=== PATIENT | male | born 1960 | race Caucasian/White ===

== ENCOUNTER 2018-08-16 14:06 | Emergency (ER) | payer BC, OTHER ==
[2018-08-16 14:18] VITALS: BP 162/104
[2018-08-16] MEDS ORDERED: Sodium Chloride 0.9% 10 ML Syringe FLUSH PRN (14:45)
[2018-08-16] MEDS ORDERED: Ondansetron 4 MG/2 ML SDV IVPUSH ONE (14:45)
[2018-08-16] MEDS ORDERED: Sodium Chloride 0.9% 1,000 ML IV ONE (14:45)
--- NOTE | 2018-08-16 14:48 | EDM.PDOC ---
ED HPI GENERAL MEDICAL PROBLEM - General Chief Complaint: Abdominal Pain Stated Complaint: ABDOMINAL PAIN Time Seen by Provider: 08/16/18 14:41 Source of Information: Reports: Patient History Limitations: Reports: No Limitations - History of Present Illness INITIAL COMMENTS - FREE TEXT/NARRATIVE: 58-year-old male presents for evaluation and treatment of left lower quadrant abdominal pain. Patient reports that the pain has been present off-and-on since beginning of July. States that this occurred about a year ago. He saw his PCP and was diagnosed with diverticulitis. He reports the beginning of this month he contacted his primary care provider was placed on amoxicillin for diverticulitis. Seem to resolve for the most part. reports now since he has had constant cramping pain to the left lower quadrant. Rates the pain as a 3-5 out of 10. States initially started having diarrhea but he is now having more constipation. Last bowel movement was this morning; he reports that it was firm and hard past. He has not had any melena or hematochezia. Reports some nausea but denies any vomiting. He also has had some chills but no fevers. He reports he does have a good appetite but has been having clear liquids today as that he is what he was told to do previously with diverticulitis. Patient's primary care provider is Dr. Joaquin. He did contact him today and he is instructed to come to the ER as he might require CT scan for further evaluation. Patient reports he did have a colonoscopy in the past. Does not recall exactly what was found but states he was told that it was good and he did not have any abnormalities. Reports he's had hernia repairs but no other abdominal surgeries. Left Abdomen Pain Score (Numeric/FACES): 3 - Related Data Allergies Allergy/AdvReac Type Severity Reaction Status Date / Time No Known Allergies Allergy Verified 08/16/18 14:15 Home Meds: Home Meds Levofloxacin [Levaquin] 750 mg PO DAILY #10 tablet 08/16/18 [Rx] metroNIDAZOLE [Flagyl] 500 mg PO Q8H #30 tab 08/16/18 [Rx] Past Medical History HEENT History: Reports: None Cardiovascular History: Reports: None Respiratory History: Reports: Sleep Apnea, Other (See Below) Other Respiratory History: utilizes cpap Gastrointestinal History: Reports: Other (See Below) Other Gastrointestinal History: lactose intolerant, L inguinal hernia Genitourinary History: Reports: None ART SUPERVISOR History: Reports: None Musculoskeletal History: Reports: Other (See Below) Other Musculoskeletal History: chronic low back pain Neurological History: Reports: None Psychiatric History: Reports: None Endocrine/Metabolic History: Reports: None Hematologic History: Reports: None Immunologic History: Reports: None Oncologic (Cancer) History: Reports: None Dermatologic History: Reports: None - Past Surgical History Head Surgeries/Procedures: Reports: None Social & Family History - Tobacco Use Smoking Status *Q: Never Smoker - Caffeine Use Caffeine Use: Reports: Soda - Recreational Drug Use Recreational Drug Use: No ED ROS GENERAL - Review of Systems Review Of Systems: See Below Constitutional: Reports: Chills. Denies: Fever, Decreased Appetite GI/Abdominal: Reports: Abdominal Pain (Left lower quadrant), Constipation, Diarrhea, Nausea. Denies: Decreased Appetite, Hematochezia, Melena, Vomiting : Reports: No Symptoms. Denies: Dysuria, Hematuria ED EXAM, GI/ABD - Physical Exam Exam: See Below Exam Limited By: No Limitations General Appearance: Alert, WD/WN, No Apparent Distress Ears: Normal External Exam Nose: Normal Inspection Throat/Mouth: Normal Inspection, Normal Lips, Normal Voice, No Airway Compromise Neck: Normal Inspection Respiratory/Chest: No Respiratory Distress, Lungs Clear, Normal Breath Sounds Cardiovascular: Normal Peripheral Pulses, Regular Rate, Rhythm, No Murmur GI/Abdominal Exam: Normal Bowel Sounds, Soft, Guarding, Tender (Left lower quadrant). No: Rigid, Rebound Neurological: Alert, Oriented, Normal Cognition Psychiatric: Normal Affect, Normal Mood Skin Exam: Warm, Dry, Normal Color Course - Vital Signs Last Recorded V/S: Last Vital Signs Temp 98.1 F 08/16/18 14:15 Pulse 85 08/16/18 14:15 Resp 18 08/16/18 14:15 BP 162/104 H 08/16/18 14:15 Pulse Ox 99 08/16/18 14:15 - Orders/Labs/Meds Orders: Active Orders 24 hr Category Date Time Status Peripheral IV Care [RC] . DIRECTED Care 08/16/18 14:45 Active Abdomen Pelvis w Cont [CT] Stat Exams 08/16/18 14:45 Taken Peripheral IV Insertion Adult [OM.PC] Routine Oth 08/16/18 14:45 Ordered Labs: Laboratory Tests 08/16/18 08/16/18 08/16/18 Range/Units 14:18 14:18 16:15 WBC 12.28 H (4.23-9.07) K/mm3 RBC 5.13 (4.63-6.08) M/mm3 Hgb 15.5 (13.7-17.5) gm/L Hct 47.0 (40.1-51.0) % MCV 91.6 (79.0-92.2) fl MCH 30.2 (25.7-32.2) pg MCHC 33.0 (32.2-35.5) g/dl RDW Std Deviation 42.0 (35.1-43.9) fL Plt Count 276 (163-337) K/mm3 MPV 9.8 (9.4-12.3) fl Neutrophils % (Manual) 73 H (40-60) % Band Neutrophils % 0 (0-10) % Lymphocytes % (Manual) 18 L (20-40) % Atypical Lymphs % 0 % Monocytes % (Manual) 8 (2-10) % Eosinophils % (Manual) 0 L (0.8-7.0) % Basophils % (Manual) 1 (0.2-1.2) Platelet Estimate Adequate Plt Morphology Comment Normal RBC Morph Comment Normal Sodium 139 (136-145) mEq/L Potassium 3.8 (3.5-5.1) mEq/L Chloride 102 (98-107) mEq/L Carbon Dioxide 30 (21-32) mEq/L Anion Gap 10.8 (5-15) BUN 13 (7-18) mg/dL Creatinine 1.1 (0.7-1.3) mg/dL Est Cr Clr Drug Dosing 89.87 mL/min Estimated GFR (MDRD) > 60 (>60) mL/min BUN/Creatinine Ratio 11.8 L (14-18) Glucose 85 (74-106) mg/dL Calcium 9.3 (8.5-10.1) mg/dL Total Bilirubin 0.7 (0.2-1.0) mg/dL AST 20 (15-37) U/L ALT 28 (16-63) U/L Alkaline Phosphatase 87 (46-116) U/L C-Reactive Protein 7.1 H* (<1.0) mg/dL Total Protein 7.6 (6.4-8.2) g/dl Albumin 3.7 (3.4-5.0) g/dl Globulin 3.9 gm/dL Albumin/Globulin Ratio 1.0 (1-2) Urine Color Yellow (Yellow) Urine Appearance Clear (Clear) Urine pH 7.0 (5.0-8.0) Ur Specific [place] 1.015 (1.005-1.030) Urine Protein Negative (Negative) Urine Glucose (UA) Negative (Negative) Urine Ketones Negative (Negative) Urine Occult Blood Negative (Negative) Urine Nitrite Negative (Negative) Urine Bilirubin Negative (Negative) Urine Urobilinogen 0.2 (0.2-1.0) Ur Leukocyte Esterase Negative (Negative) Urine RBC 0-5 (0-5) /hpf Urine WBC 0-5 (0-5) /hpf Ur Epithelial Cells 0-5 (0-5) /hpf Urine Bacteria Not seen (FEW) /hpf Urine Mucus Not seen (FEW) /hpf Meds: Medications Discontinued Medications Generic Name Dose Route Start Last Admin Trade Name Freq PRN Reason Stop Dose Admin Diatrizoate Meglum/Diatrizoate Sod 90 ml 08/16/18 16:11 08/16/18 16:12 Gastrografin 37% PO 08/16/18 16:12 90 ml ONETIME ONE Administration Sodium Chloride 1,000 mls @ 999 mls/hr 08/16/18 14:45 08/16/18 14:59 Normal Saline IV 08/16/18 15:45 999 mls/hr ONETIME ONE Administration Iopamidol 120 ml 08/16/18 16:11 08/16/18 16:12 Isovue-300 (61%) IVPUSH 08/16/18 16:12 120 ml ONETIME ONE Administration Ondansetron HCl 4 mg 08/16/18 14:45 08/16/18 14:59 Zofran IVPUSH 08/16/18 14:46 4 mg ONETIME ONE Administration Sodium Chloride 10 ml 08/16/18 14:45 08/16/18 14:59 Saline Flush FLUSH 10 ml ASDIRECTED PRN Administration Keep Vein Open - Radiology Interpretation Free Text/Narrative:: CT of the abdomen and pelvis with IV and oral contrast impression per [facility]: distal colonic diverticulitis. No abscess. - Re-Assessments/Exams Free Text/Narrative Re-Assessment/Exam: 08/16/18 17:20 I reviewed the labs and imaging with the patient. He has an uncomplicated Case of diverticulitis. He feels comfortable going home. Will treat with Levaquin and Flagyl. Close follow-up the clinic. Discharge instructions as documented. Departure - Departure Time of Disposition: 17:20 Disposition: Home, Self-Care 01 Condition: Fair Clinical Impression: Diverticulitis - Discharge Information *PRESCRIPTION DRUG MONITORING PROGRAM REVIEWED*: No *COPY OF PRESCRIPTION DRUG MONITORING REPORT IN PATIENT JASKARAN: No Prescriptions: Levofloxacin [Levaquin] 750 mg PO DAILY #10 tablet metroNIDAZOLE [Flagyl] 500 mg PO Q8H #30 tab Instructions: Diverticulitis, [id number] Referrals: Raji Rivera MD [Primary Care Provider] - Forms: ED Department Discharge Additional Instructions: Take the Levaquin as prescribed. 1 tab daily for 10 days. Take the Flagyl as prescribed. 1 tab 3 times a day for 10 days. Follow-up with your primary care provider for recheck of your symptoms this week. Recommend clear fluids and a bland diet. [place] diet recommendations include crackers, soup broth, bread, applesauce, bananas, etc. [id number] Tylenol or Motrin as needed for pain relief. Please return to the ER if your symptoms change or worsen. - My Orders Last 24 Hours: My Active Orders 08/16/18 14:45 Peripheral IV Care [RC] . DIRECTED Abdomen Pelvis w Cont [CT] Stat Peripheral IV Insertion Adult [OM.PC] Routine - Assessment/Plan Last 24 Hours: My Active Orders 08/16/18 14:45 Peripheral IV Care [RC] . DIRECTED Abdomen Pelvis w Cont [CT] Stat Peripheral IV Insertion Adult [OM.PC] Routine
[2018-08-16] MEDS ORDERED: Diatrizoate Meglumine/Diatrizoate Sodium 37% 120 ML Bottle PO ONE (16:11)
[2018-08-16] MEDS ORDERED: Iopamidol 612 MG/ML 150 ML Bottle IVPUSH ONE (16:11)
--- NOTE | 2018-08-17 17:03 | CT ---
CT abdomen and pelvis Technique: Multiple axial sections were obtained from above the dome of the diaphragm inferiorly through the pubic symphysis. Intravenous and oral contrast was utilized. Comparison: Prior MRI abdominal study of 12/12/17. Findings: Slight atelectasis is seen within both lung bases. Low density finding is seen within the inferior right lobe of the liver measuring approximately 1.6 cm which is compatible with a small cyst. No additional abnormality is seen within the liver. Spleen appears within normal limits. Adrenal glands show no nodule. Pancreas is within normal limits. Kidneys show contrast enhancement. Small cysts are noted within both kidneys. Aorta shows atherosclerotic calcification. No aneurysm is seen. Gallbladder contains no calcified gallstones. No retroperitoneal adenopathy or mesenteric abnormalities are seen. No pelvic mass or adenopathy is seen. Diverticuli are seen within the sigmoid colon with mild surrounding inflammatory change compatible with diverticulitis. No fluid collections are seen to indicate abscess. No free fluid is seen. Delayed images were obtained which show contrast within the ureters and within the bladder. Appendix is seen which is normal in size. Bone window settings were reviewed which show previous surgery as well as scattered degenerative change. Impression: 1. Findings compatible with diverticulitis with no findings of abscess. 2. Other incidental findings as noted above. Diagnostic code #3 I agree with preliminary report issued by [email or web address] ([facility] report finalized on 08/16/18, 5:46 PM Central Time)
== END 2018-08-16 17:48 | disposition home or self-care (01) ==
LOC: JD.ED 14:06
DX: K57.32 Diverticulitis of large intestine without perforation or abscess without bleeding (principal); Z79.899 Other long term (current) drug therapy
CPT/HCPCS: 36415; 74177; 80053; 81001; 85007; 85027; 86140; 96361; 96374; 99284; J2405; J7040; J7050; Q9963; Q9967